=== PATIENT | female | born 1985 | race Caucasian/White ===

== ENCOUNTER 2017-04-02 10:36 | Emergency (ER) | payer SELFPAY ==
[~2017-04-02] VITALS: Ht 157.5 cm; Wt 70.0 kg
[2017-04-02 10:42] VITALS: Ht 157.5 cm; Wt 70.0 kg
[2017-04-02 11:25] LABS: BASOPHILS % 0.3 % (0.0-2.0); EOSINOPHILS % 0.3 % (0.0-7.0); HEMATOCRIT 34.7 % (37.0-47.0); HEMOGLOBIN 12.1 g/dl (12.0-16.0); LYMPHOCYTES # 1.8 10^3/ul (0.8-2.9); LYMPHOCYTES % 26.5 % (15.0-51.0); MEAN CORPUSCULAR HEMOGLOBIN 31.1 pg (29.0-33.0); MEAN CORPUSCULAR HGB CONC 34.9 g/dl (32.0-37.0); MEAN CORPUSCULAR VOLUME 89.2 fl (82.0-101.0); MEAN PLATELET VOLUME 10.3 fl (7.4-10.4); MONOCYTE # 0.5 10^3/ul (0.3-0.9); MONOCYTES % 6.8 % (0.0-11.0); NEUTROPHIL # 4.5 10^3/ul (1.6-7.5); NEUTROPHILS % 65.8 % (39.0-77.0); PLATELET COUNT 179 10^3/UL (140-415); RED BLOOD COUNT 3.89 10^6/ul (4.20-5.40); RED CELL DISTRIBUTION WIDTH 12.9 % (11.5-14.5); WHITE BLOOD COUNT 6.8 10^3/ul (4.8-10.8)
[2017-04-02 11:37] LABS: ADD UMIC YES; UR AMORPHOUS CRYSTAL FEW /HPF (NONE SEEN); UR ASCORBIC ACID NEGATIVE (NEGATIVE); UR BILIRUBIN (Dip) NEGATIVE (NEGATIVE); UR BLOOD (Dip) 2+ mg/dL (NEGATIVE); UR CLARITY CLOUDY (CLEAR); UR COLOR YELLOW (YELLOW); UR GLUCOSE (Dip) NEGATIVE (NEGATIVE); UR KETONES (Dip) 1+ mg/dL (NEGATIVE); UR LEUKOCYTE ESTERASE (Dip) NEGATIVE Leu/ul (NEGATIVE); UR NITRITE (Dip) NEGATIVE (NEGATIVE); UR RBC 3 /HPF (0-5); UR SPECIFIC GRAVITY (Dip) 1.014 (1.003-1.030); UR SQUAMOUS EPITHELIAL CELL FEW /HPF (FEW); UR TOTAL PROTEIN (Dip) NEGATIVE (NEGATIVE); UR UROBILINOGEN (Dip) NEGATIVE (NEGATIVE)
--- NOTE | 2017-04-02 12:27 | RADRPT ---
PROCEDURE: Obstetrical ultrasound CLINICAL INDICATION: vaginal bleeding, 15 weeks TECHNIQUE: Multiple sonographic images of the pelvis were obtained. The images were reviewed on a PACS workstation. COMPARISON: None LMP: 12/17/2016 FINDINGS: The cervix is not well visualized. There is a single viable intrauterine gestation. Cardiac activity is present with 150 beats per minute. There is a transverse presentation to maternal right. The placenta is anterior. There is no evidence for an abruption or placenta previa. There is a normal amount of amniotic fluid with a maximum vertical pocket of 3.2 cm. Measurements were made in order to determine age. The results are as follows (cm): BPD =3.30 HC =12.00 AC =10.47 FL =1.77 Estimated gestational age by ultrasound of approximately 16 weeks, 0 days. The estimated date of delivery by ultrasound is 09/17/2017. Estimated gestational age by LMP of approximately 15 weeks, 1 day. The estimated date of delivery by LMP is 09/23/2017. EFW = 137 grams (85th percentile) Bilateral ovaries are not visualized. There are no abnormal adnexal masses. IMPRESSION: Single viable intrauterine gestation of approximately 16 weeks, 0 days . The estimated date of delivery is 09/17/2017 . Dating by ultrasound is within 6 days of dating by LMP. Transverse presentation to maternal right. Anterior placenta without evidence of an abruption or placenta previa. Normal amount of amniotic fluid. Estimated weight is in the 85th percentile. RPTAT: EE Physician Aleksandra Date Time Electronically viewed and signed by Physician Aleksandra on 04/02/2017 12:26 /
--- NOTE | 2017-04-02 12:33 | ERD ---
ER Documentation Chief Complaint Chief Complaint . Spotting. HPI The patient is a 31-year-old female, A0, who presents to the Emergency Department with complaint of vaginal bleeding. The patient reports that since yesterday, she flew by plane from [place] to [place], and then very early this morning took a bus from [place] to [place]. Shortly after arriving here, at approximately 5:00 am, she went to the restroom and noted onset of vaginal spotting. Therefore, she presents for evaluation. She denies any associated fevers, sweats, chills, nausea, vomiting, abdominal pain, flank pain, back pain, dysuria, hematuria, headache, dizziness, chest pain, palpitations, shortness of breath, lower extremity swelling. Her last menstrual period was 12/17/2016 and she believes that she is approximately 15 weeks . No other complaints at this time. ROS All systems reviewed and are negative except as per history of present illness. Allergies Allergies: Coded Allergies: No Known Allergy (Unverified , 04/02/17) PMhx/Soc Medical and Surgical Hx: pt denies Medical Hx, pt denies Surgical Hx Hx Alcohol Use: No Hx Substance Use: No Hx Tobacco Use: No Smoking Status: Never smoker Physical Exam Vitals Vital Signs Date Time Temp Pulse Resp B/P Pulse Ox O2 Delivery O2 Flow Rate FiO2 04/02/17 10:42 98.1 77 18 111/58 99 Physical Exam GENERAL: Well-developed, well-nourished female in no acute distress. HENT: Head is normocephalic, atraumatic. No scleral pallor or icterus. Pupils equal, round, reactive to light. Extraocular movements intact. Conjunctivae pink. Moist mucous membranes. NECK: Supple. No masses. No tenderness. No lymphadenopathy. Trachea midline. RESPIRATORY: Lungs are clear to auscultation bilaterally. No rales, rhonchi, or wheezing. Equal breath sounds. CARDIOVASCULAR: Regular rate and rhythm. S1 and S2 normal. No murmurs, rubs, or gallops. No tachycardia. Distal pulses are palpable 2+ bilaterally. Capillary refill is less than 2 seconds. GASTROINTESTINAL: Abdomen is soft, nontender and nondistended. No guarding. No rebound tenderness. No McBurneys point tenderness. FLANK: No CVA tenderness. BACK: Normal range of motion. EXTREMITIES: No clubbing, cyanosis, or edema. No focal swelling or erythema. Moving all extremities. NEUROLOGICAL: The patient is awake, alert, and oriented x3. INTEGUMENT: Skin is intact, warm, and dry. PSYCHIATRIC: Cooperative. Appropriate. Result Diagram: 04/02/17 1110 Results 24 hrs Laboratory Tests Test 04/02/17 11:10 White Blood Count 6.810^3/ul Red Blood Count 3.8910^6/ul Hemoglobin 12.1g/dl Hematocrit 34.7% Mean Corpuscular Volume 89.2fl Mean Corpuscular Hemoglobin 31.1pg Mean Corpuscular Hemoglobin Concent 34.9g/dl Red Cell Distribution Width 12.9% Platelet Count 49692^3/UL Mean Platelet Volume 10.3fl Neutrophils % 65.8% Lymphocytes % 26.5% Monocytes % 6.8% Eosinophils % 0.3% Basophils % 0.3% Nucleated Red Blood Cells % 0.0/100WBC Neutrophils # 4.510^3/ul Lymphocytes # 1.810^3/ul Monocytes # 0.510^3/ul Eosinophils # 0.010^3/ul Basophils # 0.010^3/ul Nucleated Red Blood Cells # 0.010^3/ul Urine Color YELLOW Urine Clarity CLOUDY Urine pH 8.0 Urine Specific [place] 1.014 Urine Ketones 1+mg/dL Urine Nitrite NEGATIVEmg/dL Urine Bilirubin NEGATIVEmg/dL Urine Urobilinogen NEGATIVEmg/dL Urine Leukocyte Esterase NEGATIVELeu/ul Urine Microscopic RBC 3/HPF Urine Microscopic WBC 0/HPF Urine Squamous Epithelial Cells FEW/HPF Urine Amorphous Crystals FEW/HPF Urine Hemoglobin 2+mg/dL Urine Glucose NEGATIVEmg/dL Urine Total Protein NEGATIVEmg/dl Beta HCG, Quantitative 9980.0mIU/ml Procedures/MDM DIAGNOSTIC TESTS AND INTERPRETATION: PROCEDURE: Obstetrical ultrasound CLINICAL INDICATION: vaginal bleeding, 15 weeks TECHNIQUE: Multiple sonographic images of the pelvis were obtained. The images were reviewed on a PACS workstation. COMPARISON: None LMP: 12/17/2016 FINDINGS: The cervix is not well visualized. There is a single viable intrauterine gestation. Cardiac activity is present with 150 beats per minute. There is a transverse presentation to maternal right. The placenta is anterior. There is no evidence for an abruption or placenta previa. There is a normal amount of amniotic fluid with a maximum vertical pocket of 3.2 cm. Measurements were made in order to determine age. The results are as follows (cm): BPD = 3.30 HC = 12.00 AC = 10.47 FL = 1.77 Estimated gestational age by ultrasound of approximately 16 weeks, 0 days. The estimated date of delivery by ultrasound is 09/17/2017. Estimated gestational age by LMP of approximately 15 weeks, 1 day. The estimated date of delivery by LMP is 09/23/2017. EFW = 137 grams (85th percentile) Bilateral ovaries are not visualized. There are no abnormal adnexal masses. IMPRESSION: Single viable intrauterine gestation of approximately 16 weeks, 0 days . The estimated date of delivery is 09/17/2017 . Dating by ultrasound is within 6 days of dating by LMP. Transverse presentation to maternal right. Anterior placenta without evidence of an abruption or placenta previa. Normal amount of amniotic fluid. Estimated weight is in the 85th percentile. Physician Aleksandra Date Time Electronically viewed and signed by Physician Aleksandra on 04/02/2017 12:26 The possibility of threatened was discussed with the patient and she was told to follow up with her CHIEF EXECUTIVE within 2-3 days for re-evaluation. The patient complies and agrees with plan. MEDICAL DECISION MAKING: This is a 31-year-old female presenting to the Emergency Department complaining of vaginal bleeding. She had no significant abnormalities noted on physical examination. Vital signs were normal. Differential diagnosis includes, but is not limited to, ectopic , cervicitis, fibroids, molar , heterotopic , septic , missed , incomplete , inevitable , threatened , complete , coagulopathy, fibroids, adenomyosis, endometriosis, neoplasia, vaginitis, PID, vaginal trauma , dysfunctional uterine bleeding, polyps, abruptio placentae, placenta previa, vasa previa, uterine rupture. No significant abnormalities were noted on testing ordered. Beta hCG is 9980. Rh (+), no indication for RhoGAM. Ultrasound performed revealed a single live intrauterine gestation of 16 weeks 0 day. No evidence of abruption or placenta previa. After rest, the patient reports no new complaints. Upon review and interpretation of the patient's presentation and overall ER course, I believe the patient's symptoms are most consistent with threatened /vaginal bleeding during . At this time the patient patient is in stable condition with and therefore she can be discharged home with strict return precautions for signs of deteriorating or worsening condition. The patient is advised to follow up with an CHIEF EXECUTIVE within 2-3 days for reevaluation and further management, or return to the ER sooner for any new, persistent or worsening symptoms. I shared all laboratory and diagnostic imaging studies with the patient at length and in great detail, and the patient verbally understands and agrees with the plan for further observation and care as an outpatient. At the time of discharge, all questions were answered. Departure Diagnosis: Primary Impression: Vaginal bleeding in patient at less than 20 weeks gestation Additional Impression: Threatened Condition: Stable Patient Instructions: Bleeding During Early , Possible Miscarriage ( Threatened ) Additional Instructions: Llame al doctor IOANA y shara charles RUPAL PARA DENTRO DE 2-3 HAILE.Dgale a la secretaria que nosotros le instruimos hacer esta rupal.Avise o llame si hutchinson condicin se empeora antes de la rupal. Regresa aqui si peor o no mejor. SERA ELY PA-C Apr 02, 2017 12:33 Additional Instructions: Llame al doctor IOANA y shara charles RUPAL PARA DENTRO DE 2-3 HALIE.Dgale a la secretaria que nosotros le instruimos hacer esta rupal.Avise o llame si hutchinson condicin se empeora antes de la rupal. Regresa aqui si peor o no mejor. SERA ELY PA-C Apr 02, 2017 12:33
== END 2017-04-02 12:35 | disposition home or self-care (01) ==
LOC: FTE 10:36
DX: O20.0 Threatened abortion (principal); Z3A.16 16 weeks gestation of pregnancy
CPT/HCPCS: 36415; 76805; 81001; 84702; 85025; 86900; 86901

== ENCOUNTER 2017-04-04 22:32 | Emergency (ER) | payer SELFPAY ==
[~2017-04-04] VITALS: Ht 162.6 cm; Wt 60.8 kg
[2017-04-04 22:50] VITALS: Ht 162.6 cm; Wt 60.8 kg
--- NOTE | 2017-04-04 23:23 | ERD ---
ER Documentation Chief Complaint Chief Complaint 16 wks , ap/pelvic pain HPI The patient is a 31-year-old female, presenting to the ER because of left-sided abdominal pain 1 day, associated with constipation and vomiting of mostly phlegm. She also complains of pelvic discomfort. She was seen in the ER 2 days ago for pelvic pain and vaginal bleeding, US showed a single living intra- uterine 16 weeks and 0 days. She denies any vaginal bleeding. She denies fever, chills, neck pain, chest pain, dysuria. 1. She does not smoke nor drink Past medical/surgical history: None ROS All systems reviewed and are negative except as per history of present illness. Medications Home Meds Active Scripts Acetaminophen* (Tylenol*) 325 Mg Tablet, 2 TAB PO Q6 Y for PAIN AND OR ELEVATED TEMP, #20 TAB Prov:EVELINE MOREIRA MD 04/05/17 Allergies Allergies: Coded Allergies: No Known Allergy (Unverified , 04/02/17) PMhx/Soc Hx Alcohol Use: No Hx Substance Use: No Hx Tobacco Use: No Physical Exam Vitals Vital Signs Date Time Temp Pulse Resp B/P Pulse Ox O2 Delivery O2 Flow Rate FiO2 04/04/17 22:50 97.8 77 20 128/80 100 Physical Exam Const: No acute distress. Head: Atraumatic. Eyes: Normal Conjunctiva. ENT: Normal External Ears, Nose and Mouth. Neck: Full range of motion. No meningismus. Resp: Clear to auscultation bilaterally. Cardio: Regular rate and rhythm. Abd: Soft, gravid, normal bowel sounds, non tender.Minimal left sided abdominal discomfort. Minimal and vague pelvic discomfort Skin: No petechiae or rashes. Back: No midline or flank tenderness. Ext: No cyanosis, or edema. Neur: Awake and alert. No focal deficit Psych: Normal Mood and Affect. Result Diagram: 04/04/17 23404/04/17 234 Results 24 hrs Laboratory Tests Test 04/04/17 23:40 04/05/17 00:06 White Blood Count 9.310^3/ul Red Blood Count 4.2310^6/ul Hemoglobin 12.9g/dl Hematocrit 38.1% Mean Corpuscular Volume 90.1fl Mean Corpuscular Hemoglobin 30.5pg Mean Corpuscular Hemoglobin Concent 33.9g/dl Red Cell Distribution Width 12.7% Platelet Count 19954^3/UL Mean Platelet Volume 10.2fl Neutrophils % 81.1% Lymphocytes % 12.0% Monocytes % 6.4% Eosinophils % 0.0% Basophils % 0.2% Nucleated Red Blood Cells % 0.0/100WBC Neutrophils # 7.610^3/ul Lymphocytes # 1.110^3/ul Monocytes # 0.610^3/ul Eosinophils # 0.010^3/ul Basophils # 0.010^3/ul Nucleated Red Blood Cells # 0.010^3/ul Sodium Level 135mmol/L Potassium Level 3.6mmol/L Chloride Level 102mmol/L Carbon Dioxide Level 22mmol/L Anion Gap 15 Blood Urea Nitrogen 3mg/dl Creatinine 0.45mg/dl Glucose Level 93mg/dl Calcium Level 9.5mg/dl Total Bilirubin 0.8mg/dl Direct Bilirubin 0.00mg/dl Indirect Bilirubin 0.8mg/dl Aspartate Amino Transf (AST/SGOT) 21IU/L Alanine Aminotransferase (ALT/SGPT) 37IU/L Alkaline Phosphatase 88IU/L Total Protein 8.0g/dl Albumin 4.0g/dl Globulin 4.00g/dl Albumin/Globulin Ratio 1.00 Lipase 54U/L Beta HCG, Quantitative 9560.3mIU/ml Bedside Urine pH (LAB) 6.0 Bedside Urine Protein (LAB) Negative Bedside Urine Glucose (UA) Negative Bedside Urine Ketones (LAB) 3+ Bedside Urine Blood Negative Bedside Urine Nitrite (LAB) Negative Bedside Urine Leukocyte Esterase (L Negative Current Medications Medications (Trade) Dose Ordered Sig/Wilman Route PRN Reason Start Time Stop Time Status Last Admin Dose Admin Acetaminophen (Tylenol Tab) 650 mg ONCE ONCE PO 04/05/17 00:00 04/05/17 00:01 DC 04/04/17 23:50 Procedures/MDM The nurse was unable to obtain the heart tone Official reading of the pelvic US is pending MEDICAL MAKING DECISION: The patient is a 31-year-old female, presenting with acute abdominal and pelvic pain, most likely due to constipation and related, stretched round ligaments The differential diagnoses considered include but are not limited to cholelithiasis, cholecystitis, cystitis, pancreatitis, hepatitis, gastritis, peptic ulcer disease, gastric ulcer, appendicitis, diverticulitis, cholangitis, choledocholithiasis, partial small bowel obstruction. Departure Diagnosis: Primary Impression: Abdominal pain Additional Impression: Constipation Condition: Good Comments She was discharge with Tylenol I discussed the findings with the patient. I advised the patient to follow-up with the primary physician in about 1-2 days, sooner if needed and return if any concern. Disclaimer: Inadvertent spelling and grammatical errors are likely due to EHR/ dictation software use and do not reflect on the overall quality of patient care. Also, please note that the electronic time recorded on this note does not necessarily reflect the actual time of the patient encounter. EVELINE MOREIRA MD Apr 04, 2017 23:23
[2017-04-05] MEDS ORDERED: ACETAMINOPHEN 325 MG TAB PO ONE
[2017-04-05 00:04] LABS: URINE BLOOD (Dip) POC Negative (NEGATIVE)
[2017-04-05 00:14] LABS: BASOPHILS % 0.2 % (0.0-2.0); HEMATOCRIT 38.1 % (37.0-47.0); HEMOGLOBIN 12.9 g/dl (12.0-16.0); LYMPHOCYTES # 1.1 10^3/ul (0.8-2.9); MEAN CORPUSCULAR HEMOGLOBIN 30.5 pg (29.0-33.0); MEAN CORPUSCULAR HGB CONC 33.9 g/dl (32.0-37.0); MEAN CORPUSCULAR VOLUME 90.1 fl (82.0-101.0); MEAN PLATELET VOLUME 10.2 fl (7.4-10.4); MONOCYTE # 0.6 10^3/ul (0.3-0.9); MONOCYTES % 6.4 % (0.0-11.0); NEUTROPHIL # 7.6 10^3/ul (1.6-7.5); NEUTROPHILS % 81.1 % (39.0-77.0); PLATELET COUNT 175 10^3/UL (140-415); RED BLOOD COUNT 4.23 10^6/ul (4.20-5.40); RED CELL DISTRIBUTION WIDTH 12.7 % (11.5-14.5); WHITE BLOOD COUNT 9.3 10^3/ul (4.8-10.8)
[2017-04-05 00:29] LABS: BILIRUBIN,INDIRECT 0.8 mg/dl (0-1.1); BILIRUBIN,TOTAL 0.8 mg/dl (0.2-1.3); CALCIUM 9.5 mg/dl (8.4-10.2); CREATININE 0.45 mg/dl (0.44-1.00); POTASSIUM 3.6 mmol/L (3.5-5.1)
[2017-04-05] MEDS ORDERED: ACET325T33 PO (01:55)
[2017-04-05 03:03] VITALS: BP 101/56; PULSE 65; RESP 20; TEMP 98.5
--- NOTE | 2017-04-05 11:52 | RADRPT ---
PROCEDURE: US OB. CLINICAL INDICATION: Pelvic pain and vaginal bleeding. TECHNIQUE: Multiple sonographic images of the uterus were obtained. The images were revi ewed on a PACS workstation. COMPARISON: No prior studies are available for comparison. FINDINGS: There is a single live intrauterine gestation. heart rate is 159 beats per minute. Measurements were made in order to determine age. The results are as follows: BPD = 3.65 cm. HC = 13.57 cm. AC = 10.94 cm. FL = 2.14 cm. Estimated weight is 165 +/- 25 grams. LMP growth percentile is greater than 97 %. Menstrual age by ultrasound dates is 16 weeks 6 days. The estimated date of delivery is 09/14/2017. Maximum vertical pocket of amniotic fluid is 5.5 cm. Position is cephalic and placenta is anterior grade 0. There is no evidence for an abruption or plac enta previa. IMPRESSION: 1. Single live intrauterine gestation of 16 weeks 6 days menstrual age by ultrasound dates. 2. The estimated date of delivery is 09/14/2017. RPTAT: QQ .Edinson Wilkins MD, Date Time Electronically viewed and signed by .Edinson Wilkins MD, on 04/05/2017 11:52 .R/
== END 2017-04-05 03:05 | disposition home or self-care (01) ==
LOC: FTE 22:32
DX: O99.612 Diseases of the digestive system complicating pregnancy, second trimester (principal); K59.00 Constipation, unspecified; R10.2 Pelvic and perineal pain; Z3A.16 16 weeks gestation of pregnancy
CPT/HCPCS: 36415; 76805; 80053; 81003; 83690; 84702; 85025